=== PATIENT | female | born 1990 | race American Indian/Alaskan Native ===

== ENCOUNTER 2018-11-03 14:35 | Emergency (ER) | payer OTHER ==
[2018-11-03 15:23] VITALS: BMI 32.4
[2018-11-03] MEDS ORDERED: Lactated Ringer's 1,000 ML IV SCH (15:30)
--- NOTE | 2018-11-03 16:15 | OBHP ---
Datetime: 11/03/2018 15:40 IP Adm Impression: , intrauterine IP Admit Plan: Observation/Evaluation Admit Comment, IP Provider: 28-year-old at 31.2 EGA presents for abdominal cramping that has been present intermittently for the last month. Denies vaginal bleeding, loss of fluid and painful c ontractions. Over the last few days she admits that the cramping has been worse - of note, last sexua l intercourse was Sunday (2 days prior to presentation). She denies adequate PO hydration and dark co ncentrated urine regularly - drinking 1 cup a day, remainder of hydration is fruit juice. Denies dysu tessie, fever, change in vision, new-onset edema, nausea, vomiting, CP and SOB. PCP: Dr Frank, next apt this week as per pt Meds: denies, no records for verification OBHx: 1x C/S @ 39 wks d/t presentation; no complications Family Hx: denies Surgical hx: denies Allergies: denies Labs: WNL as per patient, no records for verification ROS: all other systems reviewed and negative unless noted in HPI. PE: vitally stable Gen: comfortable, NAD Resp: no resp distress CV: RRR Abd: IUP, no tenderness to palpation Skin: no rash A+P: 28-year-old at 31.2 EGA presents for abdominal cramping that has been present intermi ttently for the last month. -Dr Frank contacted and made aware of patient, agrees with A_P -Observation, EFM reassuring - FHR 140, Mod variability, accel 15 x15 -PO hydration -ED precautions given for PTL KMcKitish PGY1 Case seen and discussedw ith Dr Paz Addendum by Dr. Paz: I have evalauted the patient independently and I agree with the above Pelvic Type - PN: Not Done Extremities - PN: Normal Abdomen - PN: Normal Back - PN: Not Done Breast - PN: Not Done Lungs - PN: Normal Heart - PN: Normal Thyroid - PN: Normal Neurologic - PN: Normal HEENT - PN: Normal General - PN: Normal FHR - Baseline A Provider: 140 EGA AdmitDate IP: 31.2 Vital Signs Provider: Reviewed; Within Normal Limits IP Chief Complaint: Maternal discomfort NICHD Variability Prov Fetus A: Moderate 6-25bpm NICHD Accel Fetus A IP Provider: 15X15 NICHD Decel Fetus A IP Provider: None Genitourinary Exam: Not Done DTRs - PN: Not Done
--- NOTE | 2018-11-03 16:15 | OBDCSUM ---
Datetime: 11/03/2018 16:12 Discharged to, Provider: Home Follow up at, Provider: OB Disch Instr Activity: Normal activity Disch Instr Diet: Regular Discharge Diagnosis, Provider: False Labor - Undelivered Discharge Time: 11/03/2018 16:14 Follow up in weeks, Provider: this week
[2018-11-03 21:46] VITALS: BP 107/70; PULSE 80; RESP 17; TEMP 98.2
== END 2018-11-03 16:12 | disposition home or self-care (01) ==
LOC: H.EROB2 14:35
DX: O26.93 Pregnancy related conditions, unspecified, third trimester (principal); R10.2 Pelvic and perineal pain; Z3A.31 31 weeks gestation of pregnancy

== ENCOUNTER 2018-11-18 16:54 | Emergency (ER) | payer OTHER ==
--- NOTE | 2018-11-18 18:53 | OBHP ---
Datetime: 11/18/2018 18:30 IP Adm Impression: , intrauterine IP Admit Plan: Observation/Evaluation Admit Comment, IP Provider: 28 y/o , 34.5 weeks based on US with AGUSTIN 01/01/19 presents to [facility] for lower abdominal pain and vaginal spotting. Patient was doing laundry yestrerday afternoon and ar ound 6:30 pm started having pinkish vaginal spotting, lower abdominal pressure, pain and lower back p ain. Patient also reports decreased movements yesterday evening but reports feeling it more now . Patient has been having headache, dizziness, nasal congestion, sore throat and nausea for past 2 da ys. Denies fever, chills, urinary symptoms. care: Dr. Riojas, Last visit 2 weeks ago, Next visit 11/21/18 OBHx: G1: C section at 39 weeks, no other complications G2: Induced at 10 weeks, D_E G3: Induced at 10 weeks, D_E PMHx: Denies PSHx: C Section, Hernia repair, D_E x 2 Allergies: NKDA Meds: PNVs F/H: Denies S/H: Denies smoking/drugs/alcohol PE Gen: NAD Chest: RRR, S1S2 present Lungs: CTAB Back: B/L lumbar paraspinal tenderness, No CVA Abdomen: Mild lower abdominal pressure, NT, Gravid, BS+ SSE: No active vaginal bleeding noted, whitish vaginal discharge noted SVE: Cervix closed A/P: 28 y/o , 34.5 weeks based on US with AGUSTIN 01/01/19 presents to [facility] for lower abdominal pain and vaginal spotting. - NST and [place] monitoring - NST reactive, 130s, Moderate variability, + accels, No decels - Occasional irregular CTx on toco - Cervix closed - PTL/ER labor precautions given - Will send patient to ER for evaluation for upper respiratory symptoms - Patient to F/U with Dr. Riojsa on 11/21/[address] Bryon Conway, PGY1 OB Hospitalist Addendum: Pt seen and examined by me. Agree a/ above. 28 yo at 34+5 wks w/ c/o vaginal pink spotting and pelvic pain, low back pain. Pt reports that she was doing the laundry yesterday afternoon and her sx started last night. On exam, pt appears comfortable. FHT reactive. [place]: occasional ctxns. VE: closed/ thick at 1824. Pt also c/o NO, dizziness, nausea, sore throat, and nasal congestion. Pt sent down to ED for upper respiratory sx. (ES) Pelvic Type - PN: Not Done Extremities - PN: Normal Abdomen - PN: Normal Back - PN: Normal Breast - PN: Not Done Lungs - PN: Normal Heart - PN: Normal General - PN: Normal FHR - Baseline A Provider: 130 Contraction Comments Provider: irregular occasional CTx Comments, ACOG Physical Exam: Gen: NAD Chest: RRR, S1S2 present Lungs: CTAB Back: B/L lumbar paraspinal tenderness, No CVA Abdomen: Mild lower abdominal pressure, NT, Gravid, BS+ SSE: No active vaginal bleeding noted, whitish vaginal discharge noted SVE: Cervix closed EGA AdmitDate IP: 33.5 Vital Signs Provider: Reviewed; Within Normal Limits IP Chief Complaint: Decreased movement; Maternal discomfort NICHD Variability Prov Fetus A: Moderate 6-25bpm NICHD Accel Fetus A IP Provider: 15X15 FHR Category Provider Fetus A: Category I Dilatation, Provider: 0 Genitourinary Exam: Normal DTRs - PN: Not Done
[2018-11-19 01:29] VITALS: BP 107/61; PULSE 89; TEMP 98.3
--- NOTE | 2018-11-19 15:56 | OBHP ---
Datetime: 11/18/2018 18:30 IP Admit Plan Other: Transfer to ED Admit Comment, IP Provider: 28 y/o , 34.5 weeks based on US with AGUSTIN 01/01/19 presents to [facility] for lower abdominal pain and vaginal spotting. Patient was doing laundry yestrerday afternoon and ar ound 6:30 pm started having pinkish vaginal spotting, lower abdominal pressure, pain and lower back p ain. Patient also reports decreased movements yesterday evening but reports feeling it more now . Patient has been having headache, dizziness, nasal congestion, sore throat and nausea for past 2 da ys. Denies fever, chills, urinary symptoms. ROS: All other systems reviwed are negative except mentioned above care: Dr. Riojas, Last visit 2 weeks ago, Next visit 11/21/18 OBHx: G1: C section at 39 weeks, no other complications G2: Induced at 10 weeks, D_E G3: Induced at 10 weeks, D_E PMHx: Denies PSHx: C Section, Hernia repair, D_E x 2 Allergies: NKDA Meds: PNVs F/H: Denies S/H: Denies smoking/drugs/alcohol PE Gen: NAD Chest: RRR, S1S2 present Lungs: CTAB Back: B/L lumbar paraspinal tenderness, No CVA Abdomen: Mild lower abdominal pressure, NT, Gravid, BS+ SSE: No active vaginal bleeding noted, whitish vaginal discharge noted SVE: Cervix closed A/P: 28 y/o , 34.5 weeks based on US with AGUSTIN 01/01/19 presents to [facility] for lower abdominal pain and vaginal spotting. - NST and [place] monitoring - NST reactive, 130s, Moderate variability, + accels, No decels - Occasional irregular CTx on toco - Cervix closed - PTL/ER labor precautions given - Will send patient to ER for evaluation for upper respiratory symptoms - Patient to F/U with Dr. Riojas on 11/21/[address] Bryon Conway, PGY1 OB Hospitalist Addendum: Pt seen andn examined by me. Agree w/ above. 28 yo at 34+5 wks w/ c/o abdominal cramping and pink vaginal spotting. Pt reports that she did laundry yesterday after noon and sx started last night. On exam, pt appears comfortable. Spec: white d/c seen, no blood see n. VE: closed/ thick at 1824. FHT reactive. [place]: occasional ctxn. Pt also c/o NO, dizziness, nause a, sore throat and nasal congestion. Pt discharged from [facility] and sent down to ED for upper respirato ry sx. Pt has an appoint w/ Dr. Frank on ., 11/21/2018. (ES) VER[place] AdmitDate IP: 33.5
== END 2018-11-18 18:50 | disposition home or self-care (01) ==
LOC: H.EROB2 16:54
DX: O26.93 Pregnancy related conditions, unspecified, third trimester (principal); R10.2 Pelvic and perineal pain; O26.853 Spotting complicating pregnancy, third trimester; Z3A.34 34 weeks gestation of pregnancy; M54.5 Low back pain; R51 Headache; R42 Dizziness and giddiness

== ENCOUNTER 2018-11-24 12:25 | Emergency (ER) | payer OTHER ==
[2018-11-24 13:31] VITALS: BMI 34.6
--- NOTE | 2018-11-24 15:52 | OBDCSUM ---
Datetime: 11/24/2018 15:38 Discharged to, Provider: Home Follow up at, Provider: Dr Frank Disch Instr Activity: Normal activity Disch Instr Diet: Regular Discharge Time: 11/24/2018 15:38 Follow up in weeks, Provider: this week in OB office Disch Referrals: None Discharge Diagnosis Prov Other: vaginal bleeding in , Non-reactive NST
--- NOTE | 2018-11-24 15:52 | OBADHP ---
Datetime: 11/24/2018 13:15 Admit Comment, IP Provider: 28-year-old at 34.4 EGA presents for vaginal spotting since this morning. When pt woek up she noted light brown spot of blood on her undergarments and two drops of b lood in the toilet. She denies loss of fluid and painful contractions. Endorses good movement. Denies dysuria, fever, change in vision, new-onset edema, nausea, vomiting, CP and SOB. PCP: Dr Frank Meds: denies, no records for verification OBHx: 1x C/S @ 39 wks d/t presentation; no complications, 2x SAB D_C Family Hx: denies Surgical hx: denies Allergies: denies Labs: WNL as per patient, no records for verification ROS: all other systems reviewed and negative unless noted in HPI. PE: vitally stable Gen: comfortable, NAD Resp: no resp distress CV: RRR Abd: IUP, no tenderness to palpation Skin: no rash Pelvic: fingertip, spotting noted on exam but no active bleeding, no lesions present A+P: 28-year-old at 34.4 EGA presents for vaginal spotting since earlier this morning. -Dr Frank contacted and made aware of patient, agrees with A_P -Observation, EFM, bedside BPP 8/8 -PO fluids -ED precautions given for PTL -Advised pt to call PMD office tomorrow for appt KMcKitish PGY1 Case seen and discussed with Dr Paz Addendum by Dr. Paz: I have evaluated the patient independently and I agree with the above Pelvic Type - PN: Adequate Extremities - PN: Normal Abdomen - PN: Normal Back - PN: Normal Breast - PN: Normal Lungs - PN: Normal Heart - PN: Normal Thyroid - PN: Normal Neurologic - PN: Normal HEENT - PN: Normal General - PN: Normal Vital Signs Provider: Reviewed; Within Normal Limits IP Chief Complaint: Vaginal bleeding NICHD Variability Prov Fetus A: Moderate 6-25bpm NICHD Accel Fetus A IP Provider: 15X15 NICHD Decel Fetus A IP Provider: None Dilatation, Provider: 1 Effacement, Provider: 0 Station, Provider: -3 Genitourinary Exam: Normal DTRs - PN: Normal EGA AdmitDate IP: 34.4 IP Adm Impression: , intrauterine IP Admit Plan: Observation/Evaluation; Discharge home Datetime: 11/18/2018 18:30 IP Admit Plan Other: Transfer to ED FHR - Baseline A Provider: 130 Contraction Comments Provider: irregular occasional CTx Comments, ACOG Physical Exam: Gen: NAD Chest: RRR, S1S2 present Lungs: CTAB Back: B/L lumbar paraspinal tenderness, No CVA Abdomen: Mild lower abdominal pressure, NT, Gravid, BS+ SSE: No active vaginal bleeding noted, whitish vaginal discharge noted SVE: Cervix closed FHR Category Provider Fetus A: Category I
--- NOTE | 2018-11-24 16:41 | US ---
Date of service: 11/24/2018 PROCEDURE: Limited obstetrical ultrasound examination with biophysical profile HISTORY: VAG BLEED 34 WKS COMPARISON: Not available TECHNIQUE: Transabdominal FINDINGS: There is a single live intrauterine gestation identified. heart rate 148 beats per minute. Cephalic presentation. anatomy not assessed. Normal amniotic fluid volume. LILI is 15.9 cm. Placenta not assessed. Biophysical profile score is 8 out of 8. IMPRESSION: Biophysical profile score 8 out of 8. Single live intrauterine gestation in cephalic presentation. heart rate 148. Grossly limited examination.
[2018-11-24 19:59] VITALS: BP 116/77; PULSE 94; O2SAT 100
== END 2018-11-24 15:57 | disposition home or self-care (01) ==
LOC: H.EROB2 12:25
DX: O26.853 Spotting complicating pregnancy, third trimester (principal); Z3A.34 34 weeks gestation of pregnancy